=== PATIENT | female | born 1940 | race Caucasian/White ===

== ENCOUNTER 2024-03-14 08:54 | Day surgery (SDC) | payer MEDICARE, BC ==
[~2024-03-14 08:54] MED LIST: Acetaminophen 325 MG Tab PO PRN; Cataract Ophth Solution EYELF ONE; Cataract Ophth Solution EYERT ONE; Moxifloxacin 0.5% Ophth Soln 3 ML Bottle EYELF ONE; Moxifloxacin 0.5% Ophth Soln 3 ML Bottle EYERT ONE; Ondansetron 4 MG/2 ML SDV IVPUSH PRN; Phenylephrine 10% Ophth Soln 5 ML Bot EYELF PRN; Phenylephrine 10% Ophth Soln 5 ML Bot EYERT ONE; Povidone-Iodine 5% Sterile Ophth Soln 30 ML Bottle EYELF ONE; Povidone-Iodine 5% Sterile Ophth Soln 30 ML Bottle EYERT ONE; Proparacaine 0.5% Ophth Soln 15 ML Bottle EYELF ONE; Proparacaine 0.5% Ophth Soln 15 ML Bottle EYERT ONE; Sodium Chloride 0.9% 10 ML Syringe FLUSH PRN; Timolol Maleate 0.5% Ophth Soln 5 ML Bottle EYELF ONE; Timolol Maleate 0.5% Ophth Soln 5 ML Bottle EYERT ONE; Tropicamide 1% Ophth Soln 15 ML Bottle EYELF ONE; Tropicamide 1% Ophth Soln 15 ML Bottle EYERT ONE
[2024-03-14] MEDS ORDERED: Acetaminophen 325 MG Tab PO PRN (09:00)
[2024-03-14] MEDS ORDERED: Ondansetron 4 MG/2 ML SDV IVPUSH PRN (09:00)
[2024-03-14] MEDS ORDERED: Acetaminophen/Codeine 300-30 MG Tab PO PRN (09:00)
[2024-03-14] MEDS: Sodium Chloride 0.9% 10 ML Syringe FLUSH PRN (09:20)
[2024-03-14] MEDS: Moxifloxacin 0.5% Ophth Soln 3 ML Bottle EYELF ONE (09:21)
[2024-03-14] MEDS: Proparacaine 0.5% Ophth Soln 15 ML Bottle EYELF ONE ×2 (09:21→09:57)
[2024-03-14] MEDS: Povidone-Iodine 5% Sterile Ophth Soln 30 ML Bottle EYELF ONE ×2 (09:22→09:57)
[2024-03-14] MEDS: Phenylephrine 10% Ophth Soln 5 ML Bot EYELF ONE (09:23)
[2024-03-14] MEDS: Timolol Maleate 0.5% Ophth Soln 5 ML Bottle EYELF ONE (09:23)
[2024-03-14] MEDS: Tropicamide 1% Ophth Soln 15 ML Bottle EYELF ONE (09:23)
[2024-03-14] MEDS: Cataract Ophth Solution EYELF ONE (09:24)
[2024-03-14] MEDS: Diclofenac Sodium 0.1% Ophth Soln 5 ML Bottle EYELF ONE (09:57)
[2024-03-14] MEDS: Apraclonidine 0.5% Ophth Soln 5 ML Bot EYELF ONE (09:57)
[2024-03-14] MEDS: Lidocaine 1% 30 ML SDV ONE (10:07)
[2024-03-14] MEDS: Dexamethasone/Neomycin/Polymyxin B Ophth Oint 3.5 GM Tube EYELF ONE (10:07)
[2024-03-14] MEDS: Vancomycin 500 MG SDV EYELF ONE (10:07)
== END 2024-03-14 10:53 | disposition home or self-care (01) ==
LOC: DL.SDS 08:54
PROVIDERS: ATTEND Ophthalmology
DX: H25.812 Combined forms of age-related cataract, left eye (principal); I10 Essential (primary) hypertension; G47.33 Obstructive sleep apnea (adult) (pediatric); E03.4 Atrophy of thyroid (acquired); Z79.899 Other long term (current) drug therapy; Z79.890 Hormone replacement therapy
CPT/HCPCS: 00142; 99100; A9270-GY; J3370; J3490; V2632

== ENCOUNTER 2024-03-28 08:00 | Day surgery (SDC) | payer MEDICARE, BC ==
[2024-03-28] MEDS: Proparacaine 0.5% Ophth Soln 15 ML Bottle EYERT ONE ×3 (06:46→09:05)
[2024-03-28] MEDS: Povidone-Iodine 5% Sterile Ophth Soln 30 ML Bottle EYERT ONE ×3 (06:47→09:05)
[2024-03-28] MEDS: Lidocaine 1% 30 ML SDV ONE ×2 (06:47→09:14)
[2024-03-28] MEDS: Apraclonidine 0.5% Ophth Soln 5 ML Bot EYERT ONE ×2 (06:48→09:20)
[2024-03-28] MEDS: Vancomycin 500 MG SDV EYERT ONE ×2 (06:48→09:15)
[2024-03-28] MEDS: Diclofenac Sodium 0.1% Ophth Soln 5 ML Bottle EYERT ONE ×2 (06:50→09:20)
[2024-03-28] MEDS: Dexamethasone/Neomycin/Polymyxin B Ophth Oint 3.5 GM Tube EYERT ONE ×2 (06:51→09:21)
[~2024-03-28 08:00] MED LIST changes: +Acetaminophen/Codeine 300-30 MG Tab PO PRN; -Cataract Ophth Solution EYELF ONE; -Cataract Ophth Solution EYERT ONE; -Moxifloxacin 0.5% Ophth Soln 3 ML Bottle EYELF ONE; -Moxifloxacin 0.5% Ophth Soln 3 ML Bottle EYERT ONE; -Phenylephrine 10% Ophth Soln 5 ML Bot EYELF PRN; -Phenylephrine 10% Ophth Soln 5 ML Bot EYERT ONE; -Povidone-Iodine 5% Sterile Ophth Soln 30 ML Bottle EYELF ONE; -Povidone-Iodine 5% Sterile Ophth Soln 30 ML Bottle EYERT ONE; -Proparacaine 0.5% Ophth Soln 15 ML Bottle EYELF ONE; -Proparacaine 0.5% Ophth Soln 15 ML Bottle EYERT ONE; -Sodium Chloride 0.9% 10 ML Syringe FLUSH PRN; -Timolol Maleate 0.5% Ophth Soln 5 ML Bottle EYELF ONE; -Timolol Maleate 0.5% Ophth Soln 5 ML Bottle EYERT ONE; -Tropicamide 1% Ophth Soln 15 ML Bottle EYELF ONE; -Tropicamide 1% Ophth Soln 15 ML Bottle EYERT ONE
[2024-03-28] MEDS: Sodium Chloride 0.9% 10 ML Syringe FLUSH PRN (08:17)
[2024-03-28] MEDS: Moxifloxacin 0.5% Ophth Soln 3 ML Bottle EYERT ONE (08:29)
[2024-03-28] MEDS: Tropicamide 1% Ophth Soln 15 ML Bottle EYERT ONE (08:30)
[2024-03-28] MEDS: Phenylephrine 10% Ophth Soln 5 ML Bot EYERT ONE (08:31)
[2024-03-28] MEDS: Timolol Maleate 0.5% Ophth Soln 5 ML Bottle EYERT ONE (08:32)
[2024-03-28] MEDS: Cataract Ophth Solution EYERT ONE (08:33)
== END 2024-03-28 10:08 | disposition home or self-care (01) ==
LOC: DL.SDS 08:00
PROVIDERS: ATTEND Ophthalmology
DX: H25.811 Combined forms of age-related cataract, right eye (principal); I10 Essential (primary) hypertension; E03.4 Atrophy of thyroid (acquired); G47.33 Obstructive sleep apnea (adult) (pediatric); Z79.899 Other long term (current) drug therapy
CPT/HCPCS: A9270-GY; J3370; J3490; V2632